=== PATIENT | male | born 1950 | race African-American/Black ===

== ENCOUNTER 2018-02-19 08:16 | Outpatient (CLI) | payer MEDICARE ==
--- NOTE | 2018-02-19 10:09 | CT ---
CTA CAROTID ARTERIES: HISTORY: Stumbling, fall past few months. FINDINGS: Contrast-enhanced CTA of the carotid arteries performed. Two-D and 3D reconstructed images performed on an independent 3D work station. The visualized portion of the lung parenchyma us unremarkable. Superior mediastinum demonstrates no definite evidence of masses or lesions. There is extensive bilateral distal common and proximal internal carotid artery calcifications. Ther e is approximately 70% bilateral proximal ICA stenosis due to calcified and noncalcified plaques. Th ere is slight asymmetry between the flow with slightly more flow seen in the right petrous and cavern ous portions of the ICA on the right compared to the left. The cavernous portion of the left ICA has only a minimal amount of flow within it and there is symmetric difference between the right and left ICA flow caliber. Correlate with intracranial CTA. The left vertebral artery is larger than the right with the right vertebral artery appearing to end i n PICA. IMPRESSION: 1. Asymmetry in the diameter of the cavernous internal carotid artery, the left being smaller than r ight. 2. Approximately 70%bilateral proximal internal carotid artery stenosis. POS: C
== END 2018-02-19 08:17 | disposition home or self-care (01) ==
LOC: SCSCT 08:16
PROVIDERS: ATTEND Psychiatry & Neurology Neurology
DX: R41.3 Other amnesia (principal); I65.23 Occlusion and stenosis of bilateral carotid arteries; I77.89 Other specified disorders of arteries and arterioles
CPT/HCPCS: 70498; 82565

== ENCOUNTER 2019-07-26 06:57 | Outpatient (CLI) | payer MEDICARE, OTHER ==
[2019-07-26 18:51] LABS: SARS-CoV-2 MS2 Positive; SARS-CoV-2 N Gene Negative; SARS-CoV-2 S Gene Negative; SARS-CoV-2 orf1ab Negative
== END 2019-07-26 06:58 | disposition home or self-care (01) ==
LOC: LABBT 06:57
PROVIDERS: ATTEND Ophthalmology Retina Specialist
DX: Z01.812 Encounter for preprocedural laboratory examination (principal); Z11.59 Encounter for screening for other viral diseases; H35.342 Macular cyst, hole, or pseudohole, left eye
CPT/HCPCS: 87635; U0003

== ENCOUNTER 2019-07-29 06:00 | Day surgery (SDC) | payer MEDICARE ==
[2019-07-26 12:32] VITALS: BMI 25.4
[2019-07-29] MEDS ORDERED: Phenylephrine 2.5% Ophth Soln 5 ML BOT ONE (06:09)
[2019-07-29] MEDS ORDERED: Cyclopentolate 1% Opth Drop 2 ML BOT ONE (06:09)
[2019-07-29] MEDS ORDERED: Fluorouracil 100 MG, Enoxaparin Sodium 25 MG, EPINEPHrine 0.3 MG in Ophthalmic Irrigati... IRR SCH (06:27)
[2019-07-29] MEDS ORDERED: Fentanyl 100 MCG/2 ML VIAL ONE (06:55)
[2019-07-29] MEDS ORDERED: PROPOFOL 20 ML ONE (06:55)
[2019-07-29] MEDS ORDERED: Midazolam HCl 2 mg/2 ml Vial ONE (06:55)
[2019-07-29] MEDS ORDERED: Maxitrol 0.1% Opth Oint 3.5 GM TUBE ONE (10:18)
[2019-07-29] MEDS ORDERED: Bupivacaine PF 0.75% SDV 10 ML ONE (10:18)
[2019-07-29] MEDS ORDERED: Enoxaparin Sodium 30 MG/0.3 ML SYRINGE ONE (10:18)
[2019-07-29] MEDS ORDERED: CEFAZOLIN 1 GM VIAL ONE (10:18)
[2019-07-29] MEDS ORDERED: Lidocaine 1% PF 5 ML VIAL ONE (10:18)
[2019-07-29] MEDS ORDERED: Triamcinolone 40 MG/ML VIAL ONE (10:18)
[2019-07-29] MEDS ORDERED: Lidocaine 4% PF 5 ML AMP ONE (10:18)
--- NOTE | 2019-07-30 10:19 | OP ---
DATE OF PROCEDURE: 07/29/2019 PREOPERATIVE DIAGNOSIS: Macular hole, left eye. POSTOPERATIVE DIAGNOSIS: Macular hole, left eye. PROCEDURES PERFORMED: Pars plana vitrectomy and membrane peel, left eye. ANESTHESIA: Local with monitored anesthesia care. DESCRIPTION OF PROCEDURE: The patient was identified in the preoperative holding area. Appropriate informed consent for the planned surgical procedure on the left eye had been obtained. The patient was transported to the operative suite. Appropriate cardiopulmonary monitoring was established. Local anesthesia was obtained using retrobulbar modified Van Lint lid block using 50:50 mixture of 4% lidocaine and 0.75% bupivacaine. The patient was prepped and draped in usual sterile manner for ophthalmic surgery left eye. Lid speculum was placed in the left eye. A 25-gauge trocar was placed in the conjunctiva and sclera superotemporally, inferotemporally, and supranasally. Infusion was placed inferotemporally. Light pipe vitreous cutter inserted to the eye. Core vitrectomy was performed. Posterior hyaloid face was elevated using vacuum suction and then posterior hyaloid membranes were peeled across the macula. Indirect ophthalmoscopy was used to exam the retina 360 degrees. No holes, breaks, or tears were identified. Complete air-fluid exchange was performed with 10 minutes being left for fluid to drain posteriorly. A 28% sulfur hexafluoride gas was infused into the eye and trocars were removed. Eye was noted to retain pressure well. Retrobulbar Kenalog sequential Ancef was placed. Antibiotic ointment was placed. Eye was patched and shielded. The patient was taken to postoperative recovery unit in good condition, having suffered no immediate perioperative complications. The patient was instructed to keep patch and shield on, avoid lifting or bending. Follow appointment with Dr. Rosales. Job ID: [id number]
== END 2019-07-29 08:43 | disposition home or self-care (01) ==
LOC: SDC 06:00
PROVIDERS: ATTEND Ophthalmology Retina Specialist
PROC: 08T53ZZ Resection of Left Vitreous, Percutaneous Approach (ICD-10-PCS; principal; 2019-07-29)
PROC: 08NF3ZZ Release Left Retina, Percutaneous Approach (ICD-10-PCS; 2019-07-29)
DX: H35.342 Macular cyst, hole, or pseudohole, left eye (principal); I10 Essential (primary) hypertension; E78.5 Hyperlipidemia, unspecified; I25.10 Atherosclerotic heart disease of native coronary artery without angina pectoris; I25.2 Old myocardial infarction; J44.9 Chronic obstructive pulmonary disease, unspecified; N28.9 Disorder of kidney and ureter, unspecified; F17.200 Nicotine dependence, unspecified, uncomplicated; E11.9 Type 2 diabetes mellitus without complications; Z79.02 Long term (current) use of antithrombotics/antiplatelets; Z79.4 Long term (current) use of insulin; Z79.82 Long term (current) use of aspirin; Z79.899 Other long term (current) drug therapy; Z88.8 Allergy status to other drugs, medicaments and biological substances; Z95.5 Presence of coronary angioplasty implant and graft
CPT/HCPCS: 36416; 67025; J0171; J0690; J1650; J2001; J2250; J2704; J3010; J3301; J3490; J9190

== ENCOUNTER 2022-02-19 14:49 | Outpatient (CLI) | payer OTHER | END 2022-02-19 14:50 | disposition home or self-care (01) | LOC: RAD 14:49 | PROVIDERS: ATTEND Family Medicine | DX: R06.00 Dyspnea, unspecified (principal) | CPT/HCPCS: 71046 ==

== ENCOUNTER 2023-02-20 14:31 | Outpatient (CLI) | payer OTHER | END 2023-02-20 14:32 | disposition home or self-care (01) | LOC: RAD 14:31 | PROVIDERS: ATTEND Internal Medicine Critical Care Medicine | DX: R06.00 Dyspnea, unspecified (principal) | CPT/HCPCS: 71046 ==

== ENCOUNTER 2024-03-04 13:28 | Outpatient (CLI) | payer OTHER | END 2024-03-04 13:29 | disposition home or self-care (01) | LOC: RAD 13:28 | PROVIDERS: ATTEND Internal Medicine Critical Care Medicine | DX: R06.00 Dyspnea, unspecified (principal) | CPT/HCPCS: 71046 ==

== ENCOUNTER 2025-01-26 15:44 | Outpatient (CLI) | payer OTHER | END 2025-01-26 15:45 | disposition home or self-care (01) | LOC: SCSRAD 15:44 | PROVIDERS: ATTEND Nurse Practitioner Family | DX: R06.02 Shortness of breath (principal) | CPT/HCPCS: 71046 ==